=== PATIENT | male | born 1995 | race Caucasian/White ===

== ENCOUNTER 2021-12-08 05:15 | Emergency (ER) | payer OTHER ==
[2021-12-08] MEDS ORDERED: Sodium Chloride 0.9% 10 ML Syringe FLUSH PRN (05:18)
== END 2021-12-08 06:48 | disposition home or self-care (01) ==
LOC: JP.ED 05:15
DX: R00.0 Tachycardia, unspecified (principal); Z79.899 Other long term (current) drug therapy
CPT/HCPCS: 36415; 80048; 80305; 84439; 84443; 84484; 85025; 85379; 93005; 93010; 99283; 99285; J3490